=== PATIENT | male | born 1950 | race Caucasian/White ===

== ENCOUNTER 2020-06-10 14:37 | Emergency (ER) | payer MEDICARE ==
[~2020-06-10 14:37] MED LIST: PROTONIX 40 MG40 M1 PO; ZOFRAN4 MG PO
== END 2020-06-10 19:39 | disposition left against medical advice (07) ==
LOC: ER1 14:37
DX: R52 Pain, unspecified (principal); R11.2 Nausea with vomiting, unspecified; Z87.448 Personal history of other diseases of urinary system; Z88.0 Allergy status to penicillin
CPT/HCPCS: 71045; 99283